=== PATIENT | female | born 1945 | race Caucasian/White ===

== ENCOUNTER 2018-05-06 10:31 | Emergency (ER) | payer MEDICARE, SELFPAY ==
[2018-05-06 10:37] VITALS: BP 175/91; PULSE 83; RESP 16; TEMP 36.6; O2SAT 95
--- NOTE | 2018-05-06 10:55 | ED.GENADUL_ITS ---
Disposition Clinical Impression: Urinary frequency, UTI (urinary tract infection) Disposition: HOME Condition: Good Instructions: Urinary Tract Infection in Women (ED) Additional Instructions: Please take antibiotics as directed. Please take Tylenol Motrin for pain. If you notice any worsening of your symptoms, or any new symptoms such as vomiting , diarrhea, fever, chills, blood in your urine, worsening urinary pain, shortness of breath, chest pain, numbness, weakness, or fainting , please return immediately to the emergency department for reevaluation. Please follow up with your primary care provider as soon as possible for reassessment and reevaluation. As always, it was a pleasure participating in your medical care today. Prescriptions: Cephalexin [Keflex] 500 mg PO BID #14 cap Medical Decision Making - Medical Decision Making This is a 73-year-old female with no significant past medical history who presents today for evaluation signs and symptoms concerning for UTI. She has no systemic symptoms of fever, tachycardia or chills. No flank tenderness on exam. No red flags of diabetes. We will evaluate with urinalysis. Differential includes UTI. Less likely urolithiasis. Urinalysis is relatively benign. There is an elevated WBC count, leukocyte esterase is positive. Nitrates are negative. Due to the patient's classic symptoms, risk factors, and mildly positive urinalysis we will start antibiotics for home use. No evidence of pyelonephritis. We do recommend close follow-up with her PCP. We discussed red flags first return the patient understands. I have extensively reviewed the treatment plan and discharge instructions with the patient. I have addressed all patient concerns at this time. The patient was made aware of what symptoms to monitor for that would warrant a return to the emergency department. Discussed the plan with the patient, they demonstrate verbal understanding and agreement with our assessment and plan at this time. History of Present Illness - General Chief complaint: Urinary Stated complaint: UTI? Time Seen by Provider: 05/06/18 10:43 - History of Present Illness Initial comments: This is a 73-year-old female who presents for evaluation of suspected UTI. Patient states that over the last few days she has had mild pressure in her pelvic region with associated burning and increased urinary frequency. She states last time she had a UTI 25 years ago she had similar symptoms. She denies any flank pain fevers chills vomiting diarrhea rash headache numbness tingling or weakness. She denies any hematuria hematochezia or hematemesis. She denies any history of kidney stones, urinary stents, or anatomical changes in the vaginal or pelvic region. She denies any recent intercourse. She denies any vaginal discharge. Past surgical history is positive for sigmoidectomy. Past medical history is positive for mild reflux, and a history of a basal cell carcinoma and squamous cell carcinoma. She denies any antibiotic allergies, or any recent antibiotics. She has no other complaints at this time. She denies any IV or illicit drug use. She denies any pertinent family history. - Related Data Biotin 10,000 mcg PO DAILY 05/06/18 Cephalexin [Keflex] 500 mg PO BID #14 cap 05/06/18 Ranitidine [Zantac] 150 mg PO DAILY 05/06/18 Allergies Allergy/AdvReac Type Severity Reaction Status Date / Time No Known Allergies Allergy Unverified 05/06/18 10:40 Review of Systems Other: 10 point review of systems was performed, pertinent positives and negatives are noted in the history of present illness. General Exam - Other Other exam information: 1.Const: Well-nourished, Well-developed, appearing stated age 2.Eyes: PERRL, no conjunctival injection, and symmetrical lids. 3.ENT: Atraumatic external nose and ears. Moist MM. Neck: Symmetric, trachea midline, No thyromegaly. 4.CVS: +S1/S2, No murmurs or gallops. Peripheral pulses 2+ and equal in all extremities. Brisk capillary refill in all extremities. 5.RESP: Unlabored respiratory effort. Clear to auscultation bilaterally. No wheezes rales or rhonchi 6.GI: Soft, Nontender/Nondistended, No hepatosplenomegaly. No guarding or rebound. No pain at McBurney's point. Negative Solares sign. No flank tenderness on percussion. No pelvic tenderness on palpation of the anterior pelvis. 7.MSK: Normocephalic/Atraumatic, Extremities w/o deformity or ttp No cyanosis or clubbing, Normal movement of all extremities 8.Skin: Warm, Dry. No rashes or lesions. 9.Neuro: clock and watch hands mounter II-XII grossly intact. Sensation grossly intact, no focal neurologic deficits. 10.Psych: (AAO) x3. Appropriate mood and affect Course Vital Signs - 24 hr 05/06/18 10:37 Temperature 36.6 C Pulse 83 Respiratory 16 Rate Blood Pressure 175/91 Pulse Oximetry 95
[2018-05-06 11:45] LABS: Bilirubin Negative (Negative); Blood Small (Negative); Clarity Clear; Glucose Negative (Negative); Ketones Trace mg/dL (Negative); Leukocyte Esterase Trace (Negative); Nitrite Negative (Negative); Urobilinogen 0.2 EU/dL (Up TO 0.2); pH 5.5 (5-8)
[2018-05-06 11:57] LABS: Bacteria Few HPF (Negative); C & S Indicated? C&S Done As Ordered; Casts Negative LPF (Negative); Crystals Negative HPF (Negative); Epithelial Cells Few HPF (Negative); Mucus Trace (Negative); Other Cells Rare Renal (Negative); RBC 0-2 (0-2); WBC 20-50 HPF (0-5)
== END 2018-05-06 12:18 | disposition home or self-care (01) ==
PROVIDERS: Emergency Provider Student in an Organized Health Care Education/Training Program
DX: N39.0 Urinary tract infection, site not specified (principal); R35.0 Frequency of micturition; Z87.440 Personal history of urinary (tract) infections
CPT/HCPCS: 99283 ×2; 87077; 81003; 81015; 87086; 87186